=== PATIENT | male | born 1935 | race Caucasian/White ===

== ENCOUNTER 2020-10-31 18:04 | Emergency (ER) | payer OTHER, MEDICARE ==
[~2020-10-31] VITALS: Ht 170.2 cm; Wt 73.6 kg
[2020-10-31 18:10] VITALS: BP 168/95
== END 2020-10-31 19:26 | disposition home or self-care (01) ==
LOC: ER 18:05
DX: S50.02XA Contusion of left elbow, initial encounter (principal); E78.00 Pure hypercholesterolemia, unspecified; I10 Essential (primary) hypertension; Z98.890 Other specified postprocedural states; Z88.5 Allergy status to narcotic agent; X58.XXXA Exposure to other specified factors, initial encounter; Y93.89 Activity, other specified; Y92.89 Other specified places as the place of occurrence of the external cause; Y99.8 Other external cause status
CPT/HCPCS: 99282

== ENCOUNTER 2021-08-22 13:01 | Emergency (ER) | payer OTHER, MEDICARE ==
[~2021-08-22] VITALS: Ht 170.2 cm; Wt 70.5 kg
[2021-08-22 13:11] VITALS: BP 158/84
--- NOTE | 2021-08-22 15:00 | NUR ---
pt still unable to urinate and does not have the urge. will rescan bladder.
--- NOTE | 2021-08-22 15:07 | NUR ---
Bladder scan at 402ml. Judah crabtree.
== END 2021-08-22 15:40 | disposition home or self-care (01) ==
LOC: ER 13:02
DX: R30.0 Dysuria (principal); E78.00 Pure hypercholesterolemia, unspecified; I10 Essential (primary) hypertension; Z88.8 Allergy status to other drugs, medicaments and biological substances
CPT/HCPCS: 99284

== ENCOUNTER 2021-10-21 14:40 | Emergency (ER) | payer OTHER, MEDICARE ==
[~2021-10-21] VITALS: Ht 170.2 cm; Wt 75.0 kg
[2021-10-21] MEDS ORDERED: CefTRIAXone 2gm/D5W 50ml BAG 50 ML IV ONE (16:25)
[2021-10-21 17:58] LABS: BASOPHILS % (AUTO) 0.3 % (0-1); EOSINOPHILS % (AUTO) 0.5 % (0-6); HEMATOCRIT 40.2 % (42.0-52.0); HEMOGLOBIN 14.1 g/dl (14.0-17.9); LYMPHOCYTES # (AUTO) 0.7 X10'3 (1.1-4.8); LYMPHOCYTES % (AUTO) 7.7 % (21-51); MEAN CORPUSCULAR HEMOGLOBIN 30.5 PG (27.0-31.0); MEAN CORPUSCULAR VOLUME 87.3 FL (78-98); MEAN PLATELET VOLUME 7.5 FL (7.4-10.4); MONOCYTES # (AUTO) 0.9 X10'3 (0-0.9); NEUTROPHILS % (AUTO) 81.5 % (42-75); PLATELET COUNT 354 X10'3 (140-440); RED BLOOD COUNT 4.61 X10'6 (4.70-6.10); RED CELL DISTRIBUTION WIDTH 14.6 % (11.5-14.5); WHITE BLOOD COUNT 8.6 X10'3 (4.5-11.0)
[2021-10-21 18:03] LABS: CLARITY,URINE CLEAR (Clear); COLOR,URINE YELLOW (Yellow); GLUCOSE, URINE NEGATIVE (Neg); KETONES,URINE 40 mg/dl (Neg); LEUKOCYTE ESTERASE ,URINE NEGATIVE (Neg); NITRITES, URINE NEGATIVE (Neg); OCCULT BLOOD,URINE TRACE-INTACT (Neg); PROTEIN,URINE NEGATIVE (Neg); UROBILINOGEN,URINE 0.2 E.U/dL (0.2-1.0)
[2021-10-21 18:04] LABS: UA COLLECTION TYPE STRAIGHT CATH
[2021-10-21 18:10] LABS: WBC,URINE NONE SEEN /HPF (0-4)
[2021-10-21 18:11] LABS: BACTERIA,URINE NONE SEEN /HPF (Neg); MUCUS STRANDS NONE SEEN /LPF (Neg); SQUAMOUS EPITHELIAL CELL,UR NONE SEEN /LPF (FEW)
[2021-10-21 18:13] LABS: APTT 33 SECONDS (22-32)
[2021-10-21 18:25] LABS: ALANINE AMINOTRANSFERASE 41 U/L (12-78); ALBUMIN 3.4 G/DL (3.4-5.0); ALBUMIN/GLOBULIN RATIO 0.8 (1.1-1.5); ALKALINE PHOSPHATASE 112 IU/L (46-116); ANION GAP 8 (8-16); ASPARTATE AMINO TRANSFERASE 56 U/L (10-37); BILIRUBIN,TOTAL 0.9 MG/DL (0.1-1.0); BLOOD UREA NITROGEN 11 MG/DL (7-18); BUN/CREATININE RATIO 18.6 (5.4-32.0); CALCIUM 8.6 MG/DL (8.5-10.1); CHLORIDE 85 MMOL/L (99-107); CREATININE 0.59 MG/DL (0.60-1.10); GLUCOSE 121 MG/DL (70-104); LIPASE < 50 U/L (73-393); MAGNESIUM 1.9 MG/DL (1.5-2.4); POTASSIUM 3.5 MMOL/L (3.5-5.1); TOTAL CARBON DIOXIDE 24.6 MMOL/L (24-32); TOTAL PROTEIN 7.5 G/DL (6.4-8.2); eGFR > 90 ML/MIN
[2021-10-21 18:37] LABS: SODIUM 118 MMOL/L (135-145)
[2021-10-21] MEDS ORDERED: normal saline 1000ML IV soln IVB ONE (18:45)
--- NOTE | 2021-10-21 20:57 | NUR ---
CALL REPORT TO [facility] [phone]
[2021-10-21 21:45] VITALS: BP 113/64
--- NOTE | 2021-10-21 21:52 | NUR ---
LALY FRANCO [facility] [phone].
[2021-10-22] MEDS ORDERED: DEXAMETHASONE 6 MG TABLET PO SCH (08:00)
== END 2021-10-21 23:46 | disposition short-term general hospital (02) ==
LOC: ER 14:40
DX: U07.1 COVID-19 (principal); E87.1 Hypo-osmolality and hyponatremia; R41.82 Altered mental status, unspecified; N13.9 Obstructive and reflux uropathy, unspecified; R45.1 Restlessness and agitation; E78.00 Pure hypercholesterolemia, unspecified; I10 Essential (primary) hypertension; Z98.890 Other specified postprocedural states; Z88.5 Allergy status to narcotic agent
CPT/HCPCS: 36415; 70450; 71045; 80053; 81001; 83605; 83690; 83735; 83880; 84145; 85025; 85610; 85730; 87040; 87635; 93005; 96365; 99291; C9803; J0696; J7030

== ENCOUNTER 2022-01-17 06:37 | Day surgery (SDC) | payer OTHER, MEDICARE ==
[2022-01-12 15:18] LABS: CLARITY,URINE CLEAR (Clear); COLOR,URINE YELLOW (Yellow); GLUCOSE, URINE NEGATIVE (Neg); KETONES,URINE NEGATIVE (Neg); LEUKOCYTE ESTERASE ,URINE NEGATIVE (Neg); NITRITES, URINE NEGATIVE (Neg); OCCULT BLOOD,URINE NEGATIVE (Neg); PROTEIN,URINE NEGATIVE (Neg); UROBILINOGEN,URINE 0.2 E.U/dL (0.2-1.0)
[2022-01-12 15:22] LABS: BASOPHILS % (AUTO) 0.1 % (0-1); EOSINOPHILS # (AUTO) 0.1 X10'3 (0-0.9); EOSINOPHILS % (AUTO) 1.6 % (0-6); LYMPHOCYTES % (AUTO) 15.2 % (21-51); MEAN CORPUSCULAR HGB CONC 33.2 g/dL (33.0-36.5); MEAN CORPUSCULAR VOLUME 87.3 FL (78-98); MEAN PLATELET VOLUME 8.1 FL (7.4-10.4); MONOCYTES # (AUTO) 0.8 X10'3 (0-0.9); MONOCYTES % (AUTO) 11.8 % (2-12); NEUTROPHILS # (AUTO) 4.9 X10'3 (1.8-7.7); NEUTROPHILS % (AUTO) 71.3 % (42-75); PRE OP HEMATOCRIT 39.5 % (42.0-52.0); PRE OP HEMOGLOBIN 13.1 g/dL (14.0-17.9); PRE OP PLATELET COUNT 235 X10'3 (140-440); RED BLOOD COUNT 4.53 X10'6 (4.70-6.10); RED CELL DISTRIBUTION WIDTH 15.9 % (11.5-14.5)
[2022-01-12 15:23] LABS: UA COLLECTION TYPE CLN CATCH MIDSTREAM
[2022-01-12 15:31] LABS: ALBUMIN 3.8 G/DL (3.4-5.0); ALKALINE PHOSPHATASE 100 IU/L (46-116); BLOOD UREA NITROGEN 18 MG/DL (7-18); CALCIUM 9.2 MG/DL (8.5-10.1); CHLORIDE 103 MMOL/L (99-107); PRE OP ALT 44 U/L (30-65); PRE OP ANION GAP 3 (8-16); PRE OP AST 36 U/L (10-37); PRE OP BILIRUB, TOTAL 0.3 MG/DL (0.0-1.0); PRE OP GLUCOSE 154 MG/DL (70-104); PRE OP SODIUM 138 MMOL/L (135-145); TOTAL CARBON DIOXIDE 31.7 MMOL/L (24-32); TOTAL PROTEIN 7.5 G/DL (6.4-8.2); eGFR 80 ML/MIN
[~2022-01-17] VITALS: Ht 170.2 cm; Wt 66.4 kg
[2022-01-17] VITALS (14 sets, daily range): BP systolic 134–170; BP diastolic 69–85
[~2022-01-17 06:37] MED LIST: AMLO5TAB15 PO; CETI10TA15 PO; FLO0.4C PO; FLUT16SP2 BOTHNARES; INDO-12 PO; PRAV20TA4 PO; cefazolin/dext.iso 2gm/50ml IV ONE; famotidine 20mg tablet PO ONE; ringers solution, lacted 1,000 ML IV SCH
[2022-01-17] MEDS ORDERED: BUPIVAcaine 0.5% inj/PF 30 ML ONE (08:35)
[2022-01-17] MEDS ORDERED: vancomycin/NS 1 GM ADD-VANTAGE 250 ML IV STA (08:36)
[2022-01-17] MEDS ORDERED: propofol inj 20 ML IV ONE (08:41)
[2022-01-17] MEDS ORDERED: fentaNYL/PF 50MCG/1 ML 2ML syringe ONE (08:41)
[2022-01-17] MEDS ORDERED: meperidine/PF 25mg/ml syringe IV PRN ×3 (08:45)
[2022-01-17] MEDS ORDERED: ondansetron/PF 4mg/2ml inj IV PRN (08:45)
[2022-01-17] MEDS ORDERED: proCHLORperazine 10 MG/2 ml inj IV PRN (08:45)
[2022-01-17] MEDS ORDERED: morphine 2 MG/ML inj. syringe IV PRN (08:45)
[2022-01-17] MEDS ORDERED: morphine 4 MG/ML inj SYRINge IV PRN (08:45)
[2022-01-17] MEDS ORDERED: ringers solution, lacted 1,000 ML IV SCH (08:45)
[2022-01-17] MEDS ORDERED: sevoflurane 250ml liquid IH ONE (08:48)
[2022-01-17] MEDS ORDERED: vancomycin 1,000mg inj ONE (08:48)
[2022-01-17] MEDS ORDERED: dexamethasone sod phosphate 4mg/ml inj. ONE (09:06)
[2022-01-17] MEDS ORDERED: ondansetron/PF 4mg/2ml inj ONE (09:39)
[2022-01-17] MEDS ORDERED: ePHEDrine 50MG/ML INJ. ONE (09:39)
--- NOTE | 2022-01-17 10:03 | NUR ---
Received from OR via [facility] , accompanied by Anesthesiologist SCOOBY and report given by Anesthesiolgist. 20 G PIV RACF, 200 ML/HR LR. LEFT INGUENAL ISLAND DRESSING IS CDI, PT EYES CLOSES EASLY AROUSABLE, SKIN IS PINK/ WARM/ DRY AROUND DRESSING SITE. VSS. WILL CONTINUE TO ASSESS. Addendum: 01/17/22 at 1018 by Rocael Pablo RN, RN Amended: Links added.
[2022-01-17] MEDS ORDERED: acetaminophen 1,000mg/100ml IV 100 ML IV PRN (10:35)
--- NOTE | 2022-01-17 11:40 | NUR ---
PATIENT TAKEN OVER TO [facility] WHERE [facility] ARE GOING TO CONTINUE THE RECOVERY AND DC PROCESS. VSS. BROUGHT OVER FROM WAITING ROOM. DISCUSSED NEED TO PUSH FLUIDS AND PREVENT CONSTIPATION AND STRAINING. SHE STATED THAT HE DOES STRUGGLE WITH THIS. Addendum: 01/17/22 at 1142 by Rocael Pablo RN, RN Amended: Links added.
[2022-01-17] MEDS ORDERED: LIDOcaine 2% 10ml TOPICAL JELLY (Urojet) MM ONE (12:40)
--- NOTE | 2022-01-17 13:00 | NUR ---
PT UNABLE TO EMPTY BLADDER, ONLY VOIDING 120CC - BLADDER SCAN >700, F/C PLACED WITH UROJET-PT TOLERATED WELL, DRAINING LG AMOUNT OF CLEAR STRAW COLORED URINE, PT HAD CATHETER PRIOR TO PROCEDURE, PT KNOWLEDGEABLE REGARDING F/C HOME CARE-REINFORCED WITH INSTRUCTIONS, GIVEN NIGHT BAG AND LEG BAG ATTACHED FOR TRANSPORT HOME, GIVEN [facility] WIPES FOR HOME CARE WELL WRITTEN INSTRUCTIONS-ALL QUESTIONS ANSWERED.
--- NOTE | 2022-01-17 13:44 | NUR ---
VSS, PIV D/CD, DISCHARGE INSTRUCTIONS GIVEN TO PT AND , TAKEN VIA W/C TO CARE FOR TRANSPORT HOME, [facility]. PAIN MANAGEABLE-WILL USE HOME PAIN MEDS, DRSG TO [facility]-CDI WITH DIME SIZE DRAINAGE NOTED-NO CHANGES.
== END 2022-01-17 13:44 | disposition home or self-care (01) ==
LOC: PAS 06:37
PROVIDERS: ATTEND Surgery
DX: K40.91 Unilateral inguinal hernia, without obstruction or gangrene, recurrent (principal); I10 Essential (primary) hypertension; N40.0 Benign prostatic hyperplasia without lower urinary tract symptoms; Z87.440 Personal history of urinary (tract) infections; Z20.822 Contact with and (suspected) exposure to COVID-19; Z86.14 Personal history of Methicillin resistant Staphylococcus aureus infection; Z98.890 Other specified postprocedural states; Z98.49 Cataract extraction status, unspecified eye; Z87.891 Personal history of nicotine dependence; Z79.899 Other long term (current) drug therapy
CPT/HCPCS: 36415; 49520; 80053; 81003; 82948; 85025; C1781; J0131; J1100; J2175; J2270; J2405; J2704; J3010; J3370; J3490; J7030; J7120; S0020; U0003; Z7506; Z7508; Z7512; A4215; A4618; A6449; A7000